=== PATIENT | female | born 1985 | race Caucasian/White ===

== ENCOUNTER 2016-10-19 15:35 | Emergency (ER) | payer OTHER ==
[~2016-10-19] VITALS: Ht 167.6 cm; Wt 82.3 kg
[2016-10-19 15:53] LABS: BASO % 0.6 % (0.0-1.0); EOS # 0.2 K/mm3 (0.0-0.50); EOS % 2.6 % (0.0-3.0); LARGE UNSTAINED CELL # 0.2 K/mm3 (0.0-0.4); LARGE UNSTAINED CELL % 2.5 % (0.0-4.0); LYMPH # 3.9 K/mm3 (1.5-4.5); LYMPH % 42.1 % (24.0-44.0); MEAN CORPUSCULAR HEMOGLOBIN 24.4 pg (27.0-33.0); MEAN CORPUSCULAR HGB CONC 31.2 g/dl (32.0-36.5); MEAN CORPUSCULAR VOLUME 78.1 fl (80.0-96.0); MONO # 0.3 K/mm3 (0.0-0.8); MONO % 2.9 % (0.0-5.0); NEUTROPHILS # 4.6 K/mm3 (1.8-7.7); NEUTROPHILS % 49.3 % (36.0-66.0); PLATELET COUNT, AUTOMATED 204 k/mm3 (150-450); WHITE BLOOD COUNT 9.2 K/mm3 (4.0-10.0)
[2016-10-19] MEDS ORDERED: [UNRECOGNIZED DRUG - OTHER] (16:00)
[2016-10-19] MEDS ORDERED: BC IMPLANT (16:00)
[2016-10-19 16:02] LABS: INR 0.94
[2016-10-19 16:14] LABS: ANION GAP 10 MEQ/L (8-16); BLOOD UREA NITROGEN 15 MG/DL (7-18); CARBON DIOXIDE LEVEL 22 MEQ/L (21-32); CHLORIDE LEVEL 109 MEQ/L (98-107); CREATININE FOR GFR 0.99 MG/DL (0.55-1.02); GLOMERULAR FILTRATION RATE > 60.0 (>60); GLUCOSE, FASTING 117 MG/DL (70-105); POTASSIUM SERUM 3.5 MEQ/L (3.5-5.1); SODIUM LEVEL 141 MEQ/L (136-145)
[2016-10-19] MEDS ORDERED: ALTEPLASE 100MG INJ (J2997) IV ONE (16:30)
[2016-10-19 16:37] LABS: CONTROL LINE HCG INT CTR LINE PRESENT
[2016-10-19 16:44] VITALS: BP 148/77
[2016-10-19] MEDS ORDERED: DILUENT IV ONE (16:45)
[2016-10-19] MEDS ORDERED: ALTEPLASE RECOMBINANT IV ONE (16:45)
--- NOTE | 2016-10-19 18:05 | ECGEPIP ---
Stationary ECG Study [facility] - ED Test Date: 2016-10-19 Pat Name: CHRISTINE ROMERO Department: Room: - Gender: F [employer] Instrument [employer]: [facility] : 1985 Requested By: BRITT Wetzel Order Number: [id number] Reading MD: Arline Darling Measurements Intervals [place] Rate: 112 P: 29 AL: 148 QRS: -8 QRSD: 78 T: -10 QT: 303 QTc: 415 Interpretive Statements SINUS TACHYCARDIA POSSIBLE ANTERIOR MYOCARDIAL INFARCTION, PROBABLY OLD ABNORMAL RHYTHM ECG NO PRIOR FOR COMPARISON Electronically Signed On 10-19-2016 18:04:38 EST by Arline Darling
--- NOTE | 2016-10-20 08:49 | REP ---
CT OF THE BRAIN WITHOUT CONTRAST: REASON FOR EXAM: Stroke-like symptoms. COMPARISON: None. TECHNIQUE: 4.5 mm contiguous transaxial sections were obtained from the skull base to the cerebral convexities with thin cuts through the posterior fossa without the administration of intravenous contrast. FINDINGS: The ventricles and sulci are consistent with the patient's age. There are no extra-axial fluid collections. There is no mass effect. The deep cerebral white matter is consistent with the patient's age. The orbital and petrous structures , cerebellopontine angles, and posterior fossa are unremarkable. The sella turcica, cavernous, and paracavernous structures are essentially unremarkable. The visualized portions of the paranasal sinuses and mastoid air cells are clear. Images of the skull base show no gross abnormality. IMPRESSION: Essentially unremarkable CT examination of the brain. Signed by Greg Manrique DO 10/20/2016 10:28 A
--- NOTE | 2016-10-20 09:30 | REP ---
REASON: Stroke-like symptoms. COMPARISON: None. FINDINGS: The technique utilized in obtaining the radiograph has magnified the cardiac silhouette and accentuated the interstitial markings. The superior mediastinal structures are midline. The cardiac silhouette is unremarkable in size, shape, and position. The diaphragmatic surfaces of the lungs are regular, and the costophrenic angles are clear. The pulmonary rodriguez are clear. The imaged osseous structures are intact. IMPRESSION: There is no acute cardiopulmonary disease. Signed by Greg Manrique DO 10/20/2016 10:28 A
== END 2016-10-19 16:46 | disposition short-term general hospital (02) ==
LOC: EDBD 15:35 → M ED 16:05
DX: I63.9 Cerebral infarction, unspecified (principal); G43.909 Migraine, unspecified, not intractable, without status migrainosus; J30.9 Allergic rhinitis, unspecified
CPT/HCPCS: 70450; 71010; 80048; 82550; 82553; 84703; 85025; 85610; 85730; 86850; 86900; 86901; 93005; 93041; 94760; 96374; 99285; J2997

== ENCOUNTER → 2016-11-04 | Outpatient (REF) | payer OTHER ==
[~2016-11-04] MED LIST: BC IMPLANT; [UNRECOGNIZED DRUG - OTHER]
== END ==
LOC: M SFHCPLAZ 09:36
PROVIDERS: ATTEND Physician Assistant Medical
DX: E04.9 Nontoxic goiter, unspecified (principal); Z53.9 Procedure and treatment not carried out, unspecified reason